=== PATIENT | male | born 2000 | race Caucasian/White ===

== ENCOUNTER 2021-01-04 02:21 | Emergency (ER) | payer MEDICAID, SELFPAY ==
[2021-01-04 02:57] VITALS: BP 135/76; PULSE 103; RESP 16; TEMP 37.6; O2SAT 99; BMI 27.3
--- NOTE | 2021-01-04 03:00 | ED_ITS ---
HPI - Nausea/Vomiting/Diarrhea General Chief complaint: Abdominal Pain Stated complaint: vomiting, diarrhea Time Seen by Provider: 01/04/21 03:00 Source: patient Mode of arrival: ambulatory History of Present Illness HPI Narrative: 20-year-old male with presentation for nausea, vomiting, diarrhea after eating food and states that despite vomiting the food up he is remained nauseous with repeated episodes that have now started with diarrhea as well. He denies any sick contacts and otherwise denies having any abdominal discomfort prior to the multiple episodes. Related Data Previous Rx's Medication Instructions Recorded ondansetron HCl 4 mg tablet 4 mg PO Q8H PRN #7 tab 01/04/21 (Zofran) Allergies Allergy/AdvReac Type Severity Reaction Status Date / Time No Known Allergies Allergy Verified 01/04/21 03:02 Review of Systems Review of Systems: Pertinent positives and negatives as stated in HPI 10 point review of systems is otherwise negative. PMFSH Past Medical History Source: nursing notes reviewed Medical History No known health problems Social History Social History Advance Directives: No Advance Directives Information Provided: Yes Physical Exam Vital Signs: Vital Signs: Last Vital Signs Temp 99.6 F 01/04/21 02:57 Pulse 103 H 01/04/21 02:57 Resp 16 01/04/21 02:57 BP 135/76 01/04/21 02:57 Pulse Ox 99 01/04/21 02:57 Body Mass Index 27.3 VITAL SIGNS: Reviewed. GENERAL: Well developed, well nourished, in no acute distress. HEAD: Normocephalic/atraumatic EYES: PERRLA, EOMI OROPHARYNX: no oral lesions noted, posterior pharynx clear NECK: Supple, no adenopathy LUNGS: Normal breath sounds. No adventitious sounds or accessory muscle use. SpO2<99> CARDIOVASCULAR: Regular rate and rhythm without noted murmurs ABDOMEN: Soft, mild superficial tenderness on palpation, non-distended with bowel sounds. SKIN: Inspection of the skin reveals no rashes NEUROLOGIC: Alert and oriented x 4. Course Course Course Narrative: 20-year-old male with history and clinical presentation consistent with food contamination gastroenteritis. Patient will be IV fluid resuscitated, will obtain basic labs. Review of all investigations consistent with stress response from multiple episodes of vomiting as serial abdominal exams are negative for pain. Patient is feeling much better on reassessment after receiving IV fluids and Zofran and was tolerating saltines prior to discharge. MDM - Nausea/Vomiting/Diarrhea Lab Data Result diagrams: 01/04/21 03:10 01/04/21 03:10 Labs: Lab Results 01/04/21 01/04/21 Range/Units 03:10 03:10 WBC 18.1 H (4.8-10.8) X10*3/uL RBC 5.62 (4.60-5.80) X10*6/uL Hgb 15.7 (14.0-18.0) g/dl Hct 47.5 (42.0-52.0) % MCV 84.5 (80.0-98.0) fL MCH 27.9 (27.0-33.0) pg MCHC 33.1 (31.0-36.0) g/dl RDW 10.9 L (11.0-16.0) % Plt Count 288 (160-400) X10*3/uL MPV 9.5 (9.4-12.4) fL Immature Gran % (Auto) 0.4 (0.0-0.4) % Neut % (Auto) 93.9 H (45-73) % Lymph % (Auto) 0.8 L (20-40) % [place] % (Auto) 4.6 (2-11) % Eos % (Auto) 0.1 (0-4) % Baso % (Auto) 0.2 (0-2) % Lymph # (Auto) 0.2 L (1.2-4.9) X10*3/uL [place] # (Auto) 0.8 (0.1-1.2) X10*3/uL Eos # (Auto) 0.0 (0.0-0.4) X10*3/uL Baso # (Auto) 0.0 (0.0-0.2) X10*3/uL Abs Immat Gran (auto) 0.07 H (0.00-0.03) X10*3/uL Absolute Neuts (auto) 17.0 H (2.0-8.3) x10*3/uL Absolute Nucleated RBC 0.000 (0.0-0.012) X10*3/uL Nucleated RBC % (auto) 0.0 (0.0-0.2) /100WBC Sodium 138 (135-145) mmol/L Potassium 4.1 (3.3-5.1) mmol/L Chloride 102 (96-108) mmol/L Carbon Dioxide 22 (22-29) mmol/L Anion Gap 18 (12-20) BUN 15 (9-16) mg/dL Creatinine 1.04 (0.5-1.4) mg/dL Estim Creat Clear Calc 108.7 Estimated GFR > 60 Random Glucose 140 H (60-115) mg/dL Calcium 9.7 (8.4-10.2) mg/dL Total Bilirubin 1.2 H (0.0-1.0) mg/dL AST 21 (5-37) U/L ALT 20 (0-40) U/L Alkaline Phosphatase 115 (39-117) U/L Total Protein 8.2 H (6.5-8.0) g/dL Albumin 4.8 (3.5-5.0) g/dL Lipase 15 (8-78) U/L Discharge Plan Discharge Clinical Impression: Gastroenteritis, Food poisoning, Dehydration Patient Disposition: Home, Self-Care Instructions: Gastroenteritis (ED), Food Poisoning (ED) Additional Instructions: 1. Resume all home medications as prescribed. 2. Increase fluid hydration, especially with water. 3. You have been provided with a prescription for nausea. 4. Follow-up with your primary care provider in the next 2-3 days for re- evaluation. Return to the ER for acute worsening of symptoms. Prescriptions: New ondansetron HCl [Zofran] 4 mg tablet 4 mg PO Q8H PRN (Reason: nausea and vomiting) Qty: 7 RF: 0
[2021-01-04] MEDS: ondansetron HCL 4 MG/2 ML VIAL IVPUSH (03:13)
[2021-01-04] MEDS: 0.9 % Sodium Chloride 2,000 ML 999 ML IV (03:13)
[2021-01-04 03:14] LABS: Basophils Percent Auto 0.2 % (0-2); Eosinophils Percent Auto 0.1 % (0-4); Hematocrit 47.5 % (42.0-52.0); Hemoglobin 15.7 g/dl (14.0-18.0); Imm Gran Abs Auto 0.07 X10*3/uL (0.00-0.03); Imm Gran Pct Auto 0.4 % (0.0-0.4); Lymphocytes Absolute Auto 0.2 X10*3/uL (1.2-4.9); Lymphocytes Percent Auto 0.8 % (20-40); Mean Corpuscular HGB Conc 33.1 g/dl (31.0-36.0); Mean Corpuscular Hemoglobin 27.9 pg (27.0-33.0); Mean Corpuscular Volume 84.5 fL (80.0-98.0); Mean Platelet Volume 9.5 fL (9.4-12.4); Monocytes Absolute Auto 0.8 X10*3/uL (0.1-1.2); Monocytes Percent Auto 4.6 % (2-11); Neutrophils Percent Auto 93.9 % (45-73); Platelet Count 288 X10*3/uL (160-400); Red Blood Count 5.62 X10*6/uL (4.60-5.80); Red Cell Distribution Width 10.9 % (11.0-16.0); SCAN SMEAR FLAG 1; White Blood Count 18.1 X10*3/uL (4.8-10.8)
[2021-01-04 03:15] LABS: MANUAL DIFF FLAG NO
[2021-01-04 03:36] LABS: Alanine Aminotransferase 20 U/L (0-40); Albumin Level 4.8 g/dL (3.5-5.0); Alkaline Phosphatase 115 U/L (39-117); Anion Gap 18 (12-20); Aspartate Amino Transferase 21 U/L (5-37); Bilirubin Total 1.2 mg/dL (0.0-1.0); Blood Urea Nitrogen 15 mg/dL (9-16); Calcium 9.7 mg/dL (8.4-10.2); Carbon Dioxide 22 mmol/L (22-29); Chloride 102 mmol/L (96-108); Creatinine Clr Calc Pharmacy 108.7; Estimated Glomerular Filt Rate > 60; Glucose Random 140 mg/dL (60-115); Lipase 15 U/L (8-78); Potassium 4.1 mmol/L (3.3-5.1); Sodium 138 mmol/L (135-145); Total Protein 8.2 g/dL (6.5-8.0)
[2021-01-04 04:00] VITALS: BP 128/67; PULSE 102; RESP 16; O2SAT 99
--- NOTE | 2021-01-04 04:36 | PC.NURSE ---
pt given a po challange with saltines and gingerale. pt nausea has resolved.
[2021-01-04 05:31] VITALS: BP 113/65; PULSE 119; RESP 16; O2SAT 100
[2021-01-04] MEDS: Acetaminophen 325 MG TABLET 975 MG PO (05:37)
[2021-01-04] MEDS: Ondansetron ODT 4 MG TAB.RAPDIS TRANSLINGU (05:38)
[2021-01-04 06:00] VITALS: BP 123/65; PULSE 110; RESP 24; O2SAT 100
--- NOTE | 2021-01-04 06:03 | PC.NURSE ---
pt feeling nausea, pale elevated rr. sat 100% on room air. pt states he doesnt feel well and is not ready for discharge at this time per pt.
--- NOTE | 2021-01-04 06:33 | PC.NURSE ---
pt is feeling better up and walking with a steady gait. pt wants to go home.
== END 2021-01-04 06:34 | disposition home or self-care (01) ==
PROVIDERS: Emergency Provider Student in an Organized Health Care Education/Training Program
DX: A05.9 Bacterial foodborne intoxication, unspecified (principal); E86.0 Dehydration
CPT/HCPCS: 36415; 80053; 83690; 85025; 96361; 96374; 99284; J2405